=== PATIENT | male | born 1985 | race Caucasian/White ===

== ENCOUNTER → 2017-06-30 | Emergency (ER) | payer OTHER ==
[~2017-06-30] VITALS: Ht 182.9 cm; Wt 88.5 kg
[~2017-06-30] MED LIST: VISTARIL50 MG PO
== END | disposition home or self-care (01) ==
LOC: ER 02:14
DX: R11.0 Nausea (principal); F41.1 Generalized anxiety disorder; F48.8 Other specified nonpsychotic mental disorders